=== PATIENT | male | born 1985 | race Caucasian/White ===

== ENCOUNTER 2021-09-17 11:33 | Emergency (ER) | payer SELFPAY ==
--- NOTE | 2021-09-17 12:37 | RAD REPORT ---
EXAM DESCRIPTION: US - Extrem Venous W Compress Horace - 09/17/2021 12:31 pm CLINICAL HISTORY: leg cramping Bilateral leg edema and swelling. COMPARISON: No comparisons TECHNIQUE: Real-time sonographic interrogation of the left and right lower extremity deep venous sys tems was performed. FINDINGS: Normal compressibility, flow augmentation, phasic flow and spontaneous flow is identified in both the left and right lower extremity deep venous systems. IMPRESSION: No sonographic evidence of left or right lower extremity deep venous thrombosis.
--- NOTE | 2021-09-17 12:42 | ER ---
Nurse's Notes [facility] Name: Tono Johnson Age: 36 yrs Sex: Male : 1985 Arrival Date: 09/17/2021 Time: 11:36 Bed 11 Private MD: Diagnosis: Encounter for examination and observation for unspecified reason Presentation: 09/17 12:00 Chief complaint: Patient states: [place]. Reports ph that he has a hx of factor 5 and pulmonary embolisms, has been taking Xarelto but ran out about 2 weeks ago and has not found a new PCP. States, " I thought I had another refill left but I didn't." Denies chest pain or SOB, reports leg cramping. Coronavirus screen: Vaccine status: Patient reports being unvaccinated. Ebola Screen: No symptoms or risks identified at this time. Initial Sepsis Screen: Does the patient meet any 2 criteria? No. Patient's initial sepsis screen is negative. Does the patient have a suspected source of infection? No. Patient's initial sepsis screen is negative. Risk Assessment: Do you want to hurt yourself or someone else? Patient reports no desire to harm self or others. Onset of symptoms was September 17, 2021. 12:00 Method Of Arrival: Ambulatory ph 12:00 Acuity: QUYEN 3 ph Triage Assessment: 12:04 General: Appears in no apparent distress. comfortable, Behavior is calm, cooperative, ph appropriate for age. Pain: Denies pain. Neuro: Level of Consciousness is awake, alert, obeys commands, Oriented to person, place, time, situation. Cardiovascular: Denies chest pain, shortness of breath. Respiratory: Airway is patent Respiratory effort is even, unlabored. Musculoskeletal: Circulation, motion, and sensation intact. Range of motion: intact in all extremities. Historical: - Allergies: 12:03 No Known Allergies; ph - Home Meds: 12:03 Xarelto oral [Active]; ph - PMHx: 12:03 pulmonary embolism; ph - PSHx: 12:03 Cholecystectomy; ph - Immunization history:: Adult Immunizations unknown. - Social history:: Smoking status: Patient reports the use of cigarette tobacco products, smokes .25 packs per day. Screenin:00 Abuse screen: Denies threats or abuse. Denies injuries from another. Nutritional iw screening: No deficits noted. Tuberculosis screening: No symptoms or risk factors identified. Fall Risk None identified. Vital Signs: 12:00 BP 124 / 92; Pulse 97; Resp 18; Temp 98.9; Pulse Ox 98% on R/A; Weight 77.11 kg; Height ph 6 ft. 1 in. (185.42 cm); 12:00 Body Mass Index 22.43 (77.11 kg, 185.42 cm) ph ED Course: 11:36 Patient arrived in ED. mr 11:36 Jeffrey Trimble PA is PHCP. cp 11:36 Christopher Haynes MD is Attending Physician. cp 12:03 Triage completed. ph 12:04 Arm band placed on Patient placed in an exam room. ph 12:09 Lenka Bob, RN is Primary Nurse. iw 12:32 US Extremity Venous W Compression Horace In Process Unspecified. EDMS 13:00 Patient has correct armband on for positive identification. iw 13:00 No provider procedures requiring assistance completed. Patient did not have IV access iw during this emergency room visit. Administered Medications: No medications were administered Outcome: 12:41 Discharge ordered by MD. cp 13:01 Discharged to home ambulatory. iw 13:01 Condition: good 13:01 Discharge instructions given to patient, Instructed on discharge instructions, follow up and referral plans. medication usage, Demonstrated understanding of instructions, follow-up care, medications, Prescriptions given X 1. 13:02 Patient left the ED. mh5 Signatures: Dispatcher [employer] Letty Diaz Lenka Bob RN RN Joselin Sandoval RN RN Jeffrey Trimble PA PA cp Martinez, Maria 5
--- NOTE | 2021-09-17 12:42 | EDPHYS ---
Physician Documentation [facility] Name: Tono Johnson Age: 36 yrs Sex: Male : 1985 Arrival Date: 09/17/2021 Time: 11:36 Bed 11 Private MD: ED Physician Christopher Haynes HPI: 09/17 12:10 This 36 yrs old Male presents to ER via Ambulatory with complaints of Medication Refill.cp 12:10 The patient presents to the emergency department requesting refill(s) for: Xarelto. 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 Patient reports leg cramping. Denies chest pain, denies shortness of breath. Historical: - Allergies: 12:03 No Known Allergies; ph - Home Meds: 12:03 Xarelto oral [Active]; ph - PMHx: 12:03 pulmonary embolism; ph - PSHx: 12:03 Cholecystectomy; ph - Immunization history:: Adult Immunizations unknown. - Social history:: Smoking status: Patient reports the use of cigarette tobacco products, smokes .25 packs per day. ROS: 12:15 Constitutional: Negative for body aches, chills, fever, poor PO intake. cp 12:15 Eyes: Negative for injury, pain, redness, and discharge. cp 12:15 ENT: Negative for ear pain, sore throat, difficulty swallowing, difficulty handling secretions. 12:15 Cardiovascular: Negative for chest pain, edema, palpitations. 12:15 Respiratory: Negative for cough, shortness of breath, wheezing. 12:15 Abdomen/GI: Negative for abdominal pain, nausea, vomiting, and diarrhea. 12:15 Back: Negative for pain at rest, pain with movement. 12:15 MS/extremity: Positive for of the right leg and left leg, cramping, Negative for pain, paresthesias. 12:15 Neuro: Negative for altered mental status, headache, numbness, weakness. 12:15 All other systems are negative. Exam: 12:20 Constitutional: The patient appears in no acute distress, alert, awake, cp non-diaphoretic, non-toxic, well developed, well nourished. 12:20 Head/Face: Normocephalic, atraumatic. cp 12:20 Eyes: Periorbital structures: appear normal, Conjunctiva: normal, no exudate, no injection, Sclera: no appreciated abnormality, Lids and lashes: appear normal, bilaterally. 12:20 ENT: External ear(s): are unremarkable, Nose: is normal, Posterior pharynx: Airway: no evidence of obstruction, patent. 12:20 Chest/axilla: Inspection: normal. 12:20 Cardiovascular: Rate: normal, Rhythm: regular, Edema: is not appreciated, JVD: is not appreciated. 12:20 Respiratory: the patient does not display signs of respiratory distress, Respirations: normal, no use of accessory muscles, no retractions, labored breathing, is not present, Breath sounds: are clear throughout, no decreased breath sounds, no stridor, no wheezing. 12:20 Abdomen/GI: Exam negative for discomfort, distension, guarding, Inspection: abdomen appears normal. 12:20 Back: pain, is absent, ROM is normal. 12:20 Musculoskeletal/extremity: DVT Exam: no swelling, no erythema, no increased warmth, tenderness, that is mild, of the right leg, of the left leg. Vital Signs: 12:00 BP 124 / 92; Pulse 97; Resp 18; Temp 98.9; Pulse Ox 98% on R/A; Weight 77.11 kg; Height ph 6 ft. 1 in. (185.42 cm); 12:00 Body Mass Index 22.43 (77.11 kg, 185.42 cm) ph MDM: 12:02 Patient medically screened. 12:40 Data reviewed: vital signs, nurses notes, radiologic studies, ultrasound. cp 12:40 Data interpreted: Pulse oximetry: on room air is 98 %. Interpretation: normal. cp Counseling: I had a detailed discussion with the patient and/or guardian regarding: the historical points, exam findings, and any diagnostic results supporting the discharge/admit diagnosis, the need for outpatient follow up, a family practitioner, to return to the emergency department if symptoms worsen or persist or if there are any questions or concerns that arise at home. 09/17 12:09 Order name: US Extremity Venous W Compression Horace; Complete Time: 12:43 cp 09/17 12:44 Interpretation: Report reviewed. cp Administered Medications: No medications were administered Disposition: 16:54 Co-signature as Attending Physician, Christopher Haynes MD. rn Disposition Summary: 09/17/21 12:41 Discharge Ordered Location: Home cp Problem: chronic cp Symptoms: are unchanged cp Condition: Stable cp Diagnosis - Encounter for examination and observation for unspecified reason cp Followup: cp - With: Private Physician - When: 2 - 3 days - Reason: Recheck today's complaints Discharge Instructions: - Discharge Summary Sheet cp Forms: - Medication Reconciliation Form cp - Thank You Letter cp - Antibiotic Education cp - Prescription Opioid Use cp Prescriptions: - Xarelto 20 mg Oral Tablet - take 1 tablet by ORAL route once daily; 30 tablet; Refills: 0, Product cp Selection Permitted Signatures: Dispatcher [employer] EDChristopher Rogers MD MD rn Hall, Patricia, RN RN ph Jeffrey Trimble, REBECCA PA cp
[2021-09-17 13:21] VITALS: BP 124/92; TEMP 98.9; O2SAT 98
== END 2021-09-17 13:02 | disposition home or self-care (01) ==
LOC: ER 11:33
DX: Z76.0 Encounter for issue of repeat prescription (principal); M79.605 Pain in left leg; M79.604 Pain in right leg; F17.210 Nicotine dependence, cigarettes, uncomplicated; Z79.01 Long term (current) use of anticoagulants; Z86.711 Personal history of pulmonary embolism
CPT/HCPCS: 93970; 99283

== ENCOUNTER 2024-08-03 16:52 | Emergency (ER) | payer OTHER, SELFPAY ==
[2024-08-03] MEDS ORDERED: HYDROMORPHONE HCL 1 MG/ML INJ ONE ×3 (17:31→19:42)
[2024-08-03 17:46] LABS: Absolute Basophils 0.1 K/uL (0-0.5); Absolute Lymphocytes (CBC) 2.1 K/uL (0.7-4.9); Absolute Monocytes 0.8 K/uL (0.1-1.3); Basophils % 0.6 % (0-1.3); Eosinophils % 0.4 % (0-4.4); Lymphocytes % 17.2 % (15.3-44.8); MCH 23.7 pg (27.0-35.0); MCHC 31.3 g/dL (32.0-36.0); MCV 75.9 fL (80-100); MPV 9.5 fL (7.6-11.3); Neutrophils % 74.8 % (41.7-73.7); Platelets 682 thou/uL (152-406); RBC Red Blood Cell Count 4.21 M/uL (4.33-5.43); Red Cell Distribution Width 24.7 % (12.1-15.2)
[2024-08-03 17:49] LABS: PT Prothrombin Time 14.7 SECONDS (9.4-12.5); PTT, Activated Partial Thromb 34.1 SECONDS (24.3-36.9); Protime INR 1.4
[2024-08-03] MEDS ORDERED: HYDROMORPHONE HCL 1 MG/ML INJ IV ONE (17:49)
[2024-08-03 17:52] LABS: Albumin 3.5 g/dL (3.4-5.0); Albumin/Globulin Ratio 0.7 (1.1-1.8); Anion Gap 9.7 mEq/L (5.0-15.0); Bilirubin Total 0.2 mg/dL (0.2-1.0); Globulin 5.2 g/dL (2.3-3.5); Potassium 4.7 mEq/L (3.5-5.1); Protein, Total 8.7 g/dL (6.4-8.2)
[2024-08-03 17:56] LABS: Anisocytosis 3+; Blood Morphology Comment NOTED (NOT SEEN); Platelet Estimate INCR; Platelets, Giant PRESENT; White Blood Cell Scan OK (OK)
--- NOTE | 2024-08-03 18:36 | EDPHYS ---
Physician Documentation [facility] Name: Tono Johnson Age: 39 yrs Sex: Male : 1985 Arrival Date: 08/03/2024 Time: 16:52 Bed 6 Private MD: ED Physician Reji Barr HPI: 08/03 18:32 This 39 yrs old Male presents to ER via Unassigned with complaints of Fall Injury, sp3 Laceration To Leg. 18:32 39-year-old male with recent BKA performed 1 week ago at [facility] presents [facility] the ED via EMS for mechanical traumatic fall resulting in complete wound dehiscence of the right lower extremity. Patient received 150 mcg of fentanyl prior to arrival. Bleeding is controlled. He is on Eliquis.. 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 - Infectious Disease History:: Denies. - Social history:: Smoking status: Patient denies any tobacco usage or history of. ROS: 18:32 Constitutional: Negative for fever, chills, and weight loss, Eyes: Negative for injury, sp3 pain, redness, and discharge, ENT: Negative for injury, pain, and discharge, Neck: Negative for injury, pain, and swelling, Cardiovascular: Negative for chest pain, palpitations, and edema, Respiratory: Negative for shortness of breath, cough, wheezing, and pleuritic chest pain, Abdomen/GI: Negative for abdominal pain, nausea, vomiting, diarrhea, and constipation, Back: Negative for injury and pain, Neuro: Negative for headache, weakness, numbness, tingling, and seizure, Psych: Negative for depression, anxiety, suicide ideation, homicidal ideation, and hallucinations, Allergy/Immunology: Negative for hives, rash, and allergies, Endocrine: Negative for neck swelling, polydipsia, polyuria, polyphagia, and marked weight changes, 18:32 All other systems are negative, Exam: 18:32 Constitutional: This is a well developed, well nourished patient who is awake, alert, sp3 and in no acute distress. Head/Face: Normocephalic, atraumatic. Chest/axilla: Normal chest wall appearance and motion. Nontender with no deformity. No lesions are appreciated. Cardiovascular: Regular rate and rhythm with a normal S1 and S2. No gallops, murmurs, or rubs. Normal PMI, no JVD. No pulse deficits. Respiratory: Lungs have equal breath sounds bilaterally, clear to auscultation and percussion. No rales, rhonchi or wheezes noted. No increased work of breathing, no retractions or nasal flaring. Abdomen/GI: Soft, non-tender, with normal bowel sounds. No distension or tympany. No guarding or rebound. No evidence of tenderness throughout. Back: No spinal tenderness. No costovertebral tenderness. Full range of motion. Neuro: Awake and alert, GCS 15, oriented to person, place, time, and situation. Cranial nerves II-XII grossly intact. Motor strength 5/5 in all extremities. Sensory grossly intact. Cerebellar exam normal. Normal gait. Psych: Awake, alert, with orientation to person, place and time. Behavior, mood, and affect are within normal limits. 18:32 Musculoskeletal/extremity: Complete wound dehiscence of the right lower extremity BKA with exposed underlying tissue.. Vital Signs: 16:53 BP 116 / 71; Pulse 73; Resp 17 S; Temp 98.3(O); Pulse Ox 98% on R/A; Weight 79.38 kg kc6 (R); Height 6 ft. 1 in. (R); Pain 9/10; 18:37 BP 133 / 90; Pulse 75; Resp 18 S; Pulse Ox 95% on R/A; kc6 16:53 Body Mass Index 23.09 (79.38 kg, 185.42 cm) kc6 16:53 Pain Scale: Adult kc6 Sun Coma Score: 16:53 Eye Response: spontaneous(4). Motor Response: obeys commands(6). Verbal Response: kc6 oriented(5). Total: 15. Trauma Score (Adult): 16:53 Eye Response: spontaneous(1); Verbal Response: oriented(1); Motor Response: obeys kc6 commands(2); Systolic BP: > 89 mm Hg(4); Respiratory Rate: 10 to 29 per min(4); Sun Score: 15; Trauma Score: 12 MDM: 18:27 Medical Screening Exam initiated sp3 18:33 Data reviewed: vital signs, nurses notes, old medical records, lab test result(s). ED sp3 course: 39-year-old male with wound dehiscence of the right BKA surgery. Will place wet-to-dry dressing, Ancef IV, and transfer patient to [facility] to the vascular service for repair. We discussed this with them and they have accepted the patient to the hospitalist service.. 08/03 18:26 Order name: Protime (+INR) EDMS 08/03 18:26 Order name: PTT, Activated Partial Thromb EDMS 08/03 18:26 Order name: Comprehensive Metabolic Panel EDMS 08/03 18:26 Order name: CBC with Automated Diff EDMS 08/03 18:26 Order name: CBC Smear Scan EDMS Administered Medications: 17:34 Drug: HYDROmorphone IVP 1 mg IVP once Route: IVP; Site: left antecubital; kc6 18:46 Follow up: Response: No adverse reaction; Pain is unchanged, physician notified; RASS: kc6 Restless (+1) 18:46 Drug: ceFAZolin IVPB 1 grams IVPB once Route: IVPB; Site: left antecubital; kc6 19:25 Follow up: IV Status: Completed infusion dd2 18:46 Drug: HYDROmorphone IVP 1 mg IVP once Route: IVP; Site: left antecubital; kc6 19:10 Follow up: Response: No adverse reaction dd2 19:44 Drug: HYDROmorphone IVP 1 mg IVP once Route: IVP; Site: left antecubital; dd2 19:46 Follow up: Response: Medication Administered at Departure dd2 Disposition Summary: 08/03/24 18:35 Transfer Ordered Notes: Transfer Location: [facility] sp3 Reason: Higher level of care sp3 Condition: Stable sp3 Problem: new sp3 Symptoms: have worsened sp3 Accepting Physician: [facility] service and vascular consu(08/03/24 19:46) dd2 Diagnosis - Right BKA wound dehiscence sp3 Forms: - Medication Reconciliation Form sp3 - SBAR form sp3 Signatures: Dispatcher [employer] EDReji Connell MD MD sp3 Bev Warren RN RN kc6 CATHI NUÑEZ RN RN dd2 Corrections: (The following items were deleted from the chart) 18: 18:26 CBC with Manual Differential ordered. EDMS EDMS 19:46 18:35 [facility] service and vascular consu sp3 dd2
--- NOTE | 2024-08-03 18:36 | ER ---
Nurse's Notes [facility] Name: Tono Johnson Age: 39 yrs Sex: Male : 1985 Arrival Date: 08/03/2024 Time: 16:52 Bed 6 Private MD: Diagnosis: Right BKA wound dehiscence Presentation: 08/03 16:53 Chief complaint: EMS states: they were toned out for a while ambulating with his kc6 crutches. pt denies LOC, takes Eliquis daily. pt reports being s/p RBKA x1 week and was d/c from [facility] this AM. upon EMS arrival the wound appears to be dehisced with a gauze and Coban dressing in place that saturated with bright red blood. Dr. Barr at bedside. 16:53 Care prior to arrival: Bleeding of injury uncontrolled. Injury dressed. Medication(s) kc6 given: Fentanyl 150 mcg IV IV initiated. 20 GA, in the left antecubital area, Glucose check: 160. Mechanism of Injury: Fall from standing position. Trauma event details: Injury occurred in the [facility], Injury occurred: at home. Injury occurred: August 03, 2024. 16:53 Acuity: QUYEN 2 kc6 16:53 Method Of Arrival: EMS: [facility] 6 16:53 Coronavirus screen: At this time, the client does not indicate any symptoms associated kc6 with coronavirus-19. Ebola Screen: No symptoms or risks identified at this time. Initial Sepsis Screen: Does the patient meet any 2 criteria? No. Patient's initial sepsis screen is negative. Does the patient have a suspected source of infection? No. Patient's initial sepsis screen is negative. Risk Assessment: Do you want to hurt yourself or someone else? Patient reports no desire to harm self or others. Onset of symptoms was August 03, 2024. Trauma Activation: Not Applicable Physician: ED Physician; Name: ; Notified At: ; Arrived At: Physician: General Surgeon; Name: ; Notified At: ; Arrived At: Physician: Radiology; Name: ; Notified At: ; Arrived At: Physician: Respiratory; Name: ; Notified At: ; Arrived At: Physician: Lab; Name: ; Notified At: ; Arrived At: Historical: - Allergies: 16:53 No Known Allergies; kc6 - PMHx: 16:53 Pulmonary Embolism; kc6 - PSHx: 16:53 Cholecystectomy; Splenectomy; right BKA; kc6 - Immunization history: Last tetanus immunization: unknown. - Infectious Disease History:: Denies. - Social history:: Smoking status: Patient denies any tobacco usage or history of. Screenin:53 Abuse screen: Denies threats or abuse. Denies injuries from another. Tuberculosis [facility] screening: No symptoms or risk factors identified. 16:53 [facility] ED Fall Risk Assessment (Adult) History of falling in the last 3 months, [facility] including since admission Yes- single mechanical fall (1 pt) Confusion or Disorientation No (0 pts) Intoxicated or Sedated No (0 pts) Impaired Gait Yes (1 pt) Mobility Assist Device Used Yes (1 pt) Altered Elimination No (0 pt) Score/Fall Risk Level 3 or more points = High Risk Oriented to surroundings, Maintained a safe environment, Educated pt \T\ family on fall prevention, incl call for assistance when getting out of bed. Nutritional screening: No deficits noted. Primary Survey: 16:53 Uncontrolled hemorrhage is observed, assessment has been re-ordered to <C> ABC. A: The kc client is awake and alert. The airway is patent. Breathing/Chest: Spontaneous respiratory effort, equal unlabored respirations, breath sounds clear bilaterally, regular pattern, symmetrical chest rise and fall. Circulation: Hemorrhage: External hemorrhage noted. to the RLE. Disability Pupils are equal, round, reactive to light and accommodation. Client is alert. Exposure/Environment: All clothing and personal items were removed. Forensic evidence collection is not deemed to be indicated at this time. Items placed in patient belonging bag. There is evidence of uncontrolled external hemorrhage. Provider notified immediately. Methods to control bleeding applied. Obvious injury(ies) are noted at this time: dehisced wound to the RLE covered in a gauze dressing and Coban. dressing appears to be saturate with bright red blood, margie visible. A warming method has been applied: A warm blanket has been provided to the patient. 18:50 Reassessment Alertness and Airway: Awake and alert. The airway is patent. Breathing: [facility] Spontaneous respiratory effort, equal unlabored respirations, breath sounds clear bilaterally, regular pattern with symmetrical chest rise and fall. Circulation: No external hemorrhage noted. Regular and strong central pulse, skin warm/dry/normal color. Disability: Pupils Pupils are equal, round, reactive to light and accomodation. Alert. Assessment: 16:53 General: Appears in no apparent distress. uncomfortable, well groomed, well developed, kc6 Behavior is cooperative, crying, restless. Pain: Complains of pain in right leg Pain does not radiate. Pain currently is 9 out of 10 on a pain scale. Quality of pain is described as sharp, shooting, stabbing, Pain began suddenly, Is continuous, Alleviated by medications, Aggravated by increased activity, repositioning, Noted to be crying, grimacing, guarding, moaning, resistant to movement, restless, Also complains of no other associated symptoms. Neuro: Level of Consciousness is awake, alert, obeys commands, Oriented to person, place, time, situation, Appropriate for age. Cardiovascular: Capillary refill < 3 seconds. Respiratory: Airway is patent Trachea midline Respiratory effort is even, unlabored, Respiratory pattern is regular, symmetrical. GI: No signs and/or symptoms were reported involving the gastrointestinal system. : No signs and/or symptoms were reported regarding the genitourinary system. EENT: No signs and/or symptoms were reported regarding the EENT system. Derm: Skin is healthy with good turgor, Skin is pink, warm \T\ dry. Wound noted right leg Wound is covered in a saturated gauze and Coban dressing. upon removing the dressing the wound appears to be dehisced with margie along the outside edges. Musculoskeletal: Amputation of right leg. 17:53 Reassessment: Patient appears in no apparent distress at this time. No changes from kc6 previously documented assessment. Patient and/or family updated on plan of care and expected duration. Pain level reassessed. Patient is alert, oriented x 3, equal unlabored respirations, skin warm/dry/pink. Patient states symptoms have not improved. 18:50 Reassessment: Patient appears in no apparent distress at this time. No changes from kc6 previously documented assessment. Patient and/or family updated on plan of care and expected duration. Pain level reassessed. Patient is alert, oriented x 3, equal unlabored respirations, skin warm/dry/pink. Patient states symptoms have not improved. 18:51 Reassessment: ATTEMPTED TO CALL REPORT TO [facility]. NO ANSWER AT THIS TIME. kc6 19:04 Reassessment: NURSE TO NURSE REPORT GIVEN TO LENO CLEMONS AT [facility]. kc6 Vital Signs: 16:53 BP 116 / 71; Pulse 73; Resp 17 S; Temp 98.3(O); Pulse Ox 98% on R/A; Weight 79.38 kg kc6 (R); Height 6 ft. 1 in. (R); Pain 9/10; 18:37 BP 133 / 90; Pulse 75; Resp 18 S; Pulse Ox 95% on R/A; kc6 16:53 Body Mass Index 23.09 (79.38 kg, 185.42 cm) kc6 16:53 Pain Scale: Adult kc6 [place] Coma Score: 16:53 Eye Response: spontaneous(4). Motor Response: obeys commands(6). Verbal Response: kc6 oriented(5). Total: 15. Trauma Score (Adult): 16:53 Eye Response: spontaneous(1); Verbal Response: oriented(1); Motor Response: obeys kc6 commands(2); Systolic BP: > 89 mm Hg(4); Respiratory Rate: 10 to 29 per min(4); [place] Score: 15; Trauma Score: 12 ED Course: 16:53 Patient has correct armband on for positive identification. Bed in low position. Call kc6 light in reach. Side rails up X2. 16:53 Arm band placed on. kc6 16:53 Pulse ox on. NIBP on. Door closed. Noise minimized. Lights dimmed. Warm blanket given. kc6 Pillow given. Verbal reassurance given. 16:53 Patient maintains SpO2 saturation greater than 95% on room air. kc6 16:53 Maintain EMS IV. Dressing intact. Good blood return noted. Site clean \T\ dry. Gauge \T\ travon 6 site: 20G LAC. Flushed with 10 mL NS. 16:53 Thermoregulation: warm blanket given to patient. kc6 17:34 Ramos wrap to right leg. Wound care: to RBKA located on right leg was soaked in normal kc6 saline solution, dressed with 4X4s, Kerlix, Patient tolerated poorly. 18:26 Patient arrived in ED. kb3 18:27 Reji Barr MD is Attending Physician. sp3 18:29 Bev Warren, RN is Primary Nurse. kc6 18:32 Triage completed. kc6 19:00 Report given to Yisel Oropeza RN. kc6 19:44 No provider procedures requiring assistance completed. Patient transferred, IV remains dd2 in place. 19:45 Provided Education on: TRANSFER EDUCATION. dd2 Administered Medications: 17:34 Drug: HYDROmorphone IVP 1 mg IVP once Route: IVP; Site: left antecubital; kc6 18:46 Follow up: Response: No adverse reaction; Pain is unchanged, physician notified; RASS: kc6 Restless (+1) 18:46 Drug: ceFAZolin IVPB 1 grams IVPB once Route: IVPB; Site: left antecubital; kc6 19:25 Follow up: IV Status: Completed infusion dd2 18:46 Drug: HYDROmorphone IVP 1 mg IVP once Route: IVP; Site: left antecubital; kc6 19:10 Follow up: Response: No adverse reaction dd2 19:44 Drug: HYDROmorphone IVP 1 mg IVP once Route: IVP; Site: left antecubital; dd2 19:46 Follow up: Response: Medication Administered at Departure dd2 Medication: 19:45 VIS not applicable for this client. dd2 Outcome: 18:35 ER care complete, transfer ordered by . sp3 19:44 Transferred by ground EMS to [facility], Transfer form completed. dd2 19:44 Condition: stable 19:44 Instructed on the need for transfer, Demonstrated understanding of instructions, 19:46 Patient left the ED. dd2 Signatures: Reji Barr MD MD sp3 Bev Warren, LENO RN kc6 Micki Cox RN RN kb3 YISEL OROPEZA RN RN dd2
[2024-08-03] MEDS ORDERED: NA CHLORIDE 0.9% 100 ML ONE (18:40)
[2024-08-03] MEDS ORDERED: CEFAZOLIN SODIUM 1 GM/VIAL ONE (18:40)
[2024-08-03 22:36] VITALS: TEMP 98.3
[2024-08-03 22:37] VITALS: BP 133/90; O2SAT 95
== END 2024-08-03 19:46 | disposition short-term general hospital (02) ==
LOC: ER 16:52
DX: T87.81 Dehiscence of amputation stump (principal); Z89.511 Acquired absence of right leg below knee; Z79.01 Long term (current) use of anticoagulants
CPT/HCPCS: 85025; 36415; 85610; 85730; 80053; J1171 ×3; J0690

== ENCOUNTER 2024-09-17 13:58 | Emergency (ER) | payer OTHER ==
--- NOTE | 2024-09-17 15:03 | RAD REPORT ---
EXAMINATION: Abdomen Pelvis Wo Contrast CLINICAL INDICATION: Male, 39 years old.FLANK PAIN TECHNIQUE: CT abdomen and pelvis was performed, without IV contrast, as per department protocol. Axia l, sagittal and coronal reconstructions were obtained. One or more of the following dose reduction techniques were used: Automated exposure control, adjustment of the mA and/or kV according to the pat ient size, and/or iterative reconstruction. Unless otherwise specified, incidental findings do not require dedicated imaging follow-up. [id number]. IV CONTRAST: Not administered. COMPARISON: None FINDINGS: The lack of intravenous contrast limits the sensitivity of this exam for evaluation of solid visceral organs, vascular structures, and retroperitoneum. LOWER CHEST: No acute process identified.No significant pericardial effusion. UPPER GI: No significant abnormality. LIVER: No significant focal abnormality. GALLBLADDER/BILE DUCTS: Cholecystectomy. Mild extra-hepatic biliary ductal dilatation is likely relat ed to the post-cholecystectomy state. Consider correlating with LFT's.? PANCREAS: No mass, ductal dilation, or deshawn-pancreatic fluid. SPLEEN: Splenectomy ADRENALS: No adrenal masses. KIDNEYS AND URETERS: No hydronephrosis.Limited evaluation for renal lesions in the absence of IV cont rast.Several punctate left renal calculi.No ureteral calculi identified. ABDOMINAL AORTA AND OTHER VESSELS: Aorta iliac stent graft. PERITONEUM: No abnormal free fluid. No free air. LYMPH NODES: No pathologic lymphadenopathy. ABDOMINAL WALL: Unremarkable SMALL BOWEL/COLON: Small bowel has normal course and caliber. No colonic wall thickening or pericolon ic inflammatory changes.Partial bowel resection. Nonvisualized appendix. URINARY BLADDER: Underdistended but grossly unremarkable. REPRODUCTIVE ORGANS: No pathologic process. MUSCULOSKELETAL: No acute or suspicious osseous abnormality. ADDITIONAL FINDINGS: None. IMPRESSION: No acute findings within the abdomen or pelvis. Nonobstructive left nephrolithiasis.
[2024-09-17] MEDS ORDERED: NA CHLORIDE 0.9% 1,000 ML ONE (15:04)
[2024-09-17 15:20] LABS: Absolute Lymphocytes (CBC) 2.4 K/uL (0.7-4.9); Absolute Monocytes 0.6 K/uL (0.1-1.3); Absolute Neutrophil 3.6 K/uL (1.8-8.0); Basophils % 0.6 % (0-1.3); Eosinophils % 0.4 % (0-4.4); Hematocrit 36.5 % (39.6-49.0); Hemoglobin 12.4 g/dL (13.6-17.9); Lymphocytes % 35.5 % (15.3-44.8); MCH 27.1 pg (27.0-35.0); MCHC 33.8 g/dL (32.0-36.0); MCV 80.3 fL (80-100); MPV 8.3 fL (7.6-11.3); Neutrophils % 54.5 % (41.7-73.7); Nucleated Red Blood Cells % 0.1 % (0-0); Platelets 442 thou/uL (152-406); RBC Red Blood Cell Count 4.55 M/uL (4.33-5.43); Red Cell Distribution Width 22.7 % (12.1-15.2)
[2024-09-17 15:27] LABS: White Blood Cell Scan OK (OK)
[2024-09-17 15:28] LABS: Anisocytosis 2+; Blood Morphology Comment NOTED (NOT SEEN); Platelet Estimate INCR; Platelets, Giant PRESENT
[2024-09-17 15:58] LABS: Albumin 3.6 g/dL (3.4-5.0); Albumin/Globulin Ratio 0.9 (1.1-1.8); Anion Gap 7.7 mEq/L (5.0-15.0); Bilirubin Total 0.4 mg/dL (0.2-1.0); Globulin 3.9 g/dL (2.3-3.5); Potassium 3.7 mEq/L (3.5-5.1); Protein, Total 7.5 g/dL (6.4-8.2)
[2024-09-17 16:06] LABS: PT Prothrombin Time 14.7 SECONDS (10-13.0); PTT, Activated Partial Thromb 31.2 SECONDS (27.2-37.4); Protime INR 1.31
[2024-09-17 16:25] LABS: Specific Gravity 1.009 (1.005-1.030); Urine Bilirubin NEGATIVE (Negative); Urine Blood Negative (Negative); Urine Clarity Clear (Clear); Urine Color Colorless (Yellow); Urine Glucose NEGATIVE (Negative); Urine Ketones NEGATIVE (Negative); Urine Microscopic Reflex YN NO UMIC; Urine Nitrite NEGATIVE (Negative); Urine Protein NEGATIVE (Negative); Urine Urobilinogen Normal (Normal)
--- NOTE | 2024-09-17 16:30 | ER ---
Nurse's Notes [facility] Name: Tono Johnson Age: 39 yrs Sex: Male : 1985 Arrival Date: 09/17/2024 Time: 13:58 Bed 18 Private MD: Diagnosis: Back pain Presentation: 09/17 14:02 Chief complaint: Patient states: he has a factor 5 blood clotting disorder, and is ap3 having low back pain. patient is worried he might have a blood clot, as he recently had a right BKA due to clotting issues. patient states "I am certain i have a blood clot in my toe. I just don't feel right.". Coronavirus screen: At this time, the client does not indicate any symptoms associated with coronavirus-19. Ebola Screen: No symptoms or risks identified at this time. Initial Sepsis Screen: Does the patient meet any 2 criteria? HR > 90 bpm. Does the patient have a suspected source of infection? No. Patient's initial sepsis screen is negative. Risk Assessment: Do you want to hurt yourself or someone else? Patient reports no desire to harm self or others. Onset of symptoms was September 10, 2024. 14:02 Method Of Arrival: Ambulatory ap3 14:02 Acuity: QUYEN 3 ap3 Triage Assessment: 14:06 General: Appears in no apparent distress. Behavior is calm, cooperative, appropriate ap3 for age. Pain: Complains of pain in low back area, left foot. Neuro: Level of Consciousness is awake, alert, obeys commands, Oriented to person, place, time, situation. Cardiovascular: Patient's skin is warm and dry. Respiratory: Airway is patent Respiratory effort is even, unlabored, Respiratory pattern is regular, symmetrical. Musculoskeletal: right BKA, patient ambulating with crutches. Historical: - Allergies: 14:05 No Known Allergies; ap3 - PMHx: 14:05 Pulmonary Embolism; factor 5 blood cloting disorder; ap3 - PSHx: 14:05 Cholecystectomy; RIGHT BKA; Splenectomy; ap3 - Immunization history:: Client reports having NOT received the Covid vaccine. Flu vaccine is up to date. - Infectious Disease History:: Denies. - Social history:: Smoking status: Patient denies any tobacco usage or history of. Screenin:07 Abuse screen: Denies threats or abuse. Nutritional screening: No deficits noted. ap3 Tuberculosis screening: No symptoms or risk factors identified. 14:30 [facility] ED Fall Risk Assessment (Adult) History of falling in the last 3 months, kj2 including since admission No falls in past 3 months (0 pts) Confusion or Disorientation No (0 pts) Intoxicated or Sedated No (0 pts) Impaired Gait Yes (1 pt) Mobility Assist Device Used Yes (1 pt) Altered Elimination Score/Fall Risk Level 0 - 2 = Low Risk Maintained a safe environment, Hourly rounding (assess needs \\T\\ fall precautionary measures) done. Assessment: 14:27 General: Appears in no apparent distress. Behavior is calm, cooperative. Pain: kj2 Complains of pain in back. 14:27 Pain: Complains of pain in back Pain currently is 7 out of 10 on a pain scale. Neuro: kj2 No deficits noted. Level of Consciousness is awake, alert, Oriented to person, place, time, situation. Cardiovascular: Patient's skin is warm and dry. Respiratory: Airway is patent Respiratory effort is even, unlabored. GI: No signs and/or symptoms were reported involving the gastrointestinal system. : No signs and/or symptoms were reported regarding the genitourinary system. 15:19 Reassessment: Patient appears in no apparent distress at this time. Patient and/or kj2 family updated on plan of care and expected duration. Pain level reassessed. Patient is alert, oriented x 3, equal unlabored respirations, skin warm/dry/pink. 16:10 Reassessment: Patient appears in no apparent distress at this time. Patient and/or kj2 family updated on plan of care and expected duration. Pain level reassessed. Patient is alert, oriented x 3, equal unlabored respirations, skin warm/dry/pink. 16:45 Reassessment: Patient appears in no apparent distress at this time. Patient and/or kj2 family updated on plan of care and expected duration. Pain level reassessed. Patient is alert, oriented x 3, equal unlabored respirations, skin warm/dry/pink. Vital Signs: 14:02 BP 147 / 90; Pulse 117; Resp 18; Temp 98.1; Pulse Ox 97% ; Weight 83.91 kg; Height 6 ap3 ft. 1 in. ; Pain 8/10; 15:19 BP 149 / 106; Pulse 97; Resp 20; Pulse Ox 97% on R/A; kj2 16:10 BP 120 / 69; Pulse 57; Resp 18; kj2 16:45 BP 121 / 70; Pulse 60; Resp 20; Temp 98.1; Pulse Ox 100% on R/A; kj2 14:02 Body Mass Index 24.41 (83.91 kg, 185.42 cm) ap3 14:02 Pain Scale: Adult ap3 ED Course: 13:58 Patient arrived in ED. mr 13:58 Reji Barr MD is Attending Physician. sp3 14:05 Triage completed. ap3 14:08 Arm band placed on left wrist. ap3 14:22 Harini Bob, RN is Primary Nurse. kj2 14:31 Patient has correct armband on for positive identification. Call light in reach. Adult kj2 w/ patient. Provided Education on: call light. 14:48 CT Abd/Pelvis - Without Contrast In Process Unspecified. EDMS 15:05 Inserted saline lock: 20 gauge in right forearm, using aseptic technique. Blood kj2 collected. Flushed with 10 mL NS. 16:47 No provider procedures requiring assistance completed. IV discontinued, intact, kj2 bleeding controlled, No redness/swelling at site. Pressure dressing applied. Administered Medications: 15:16 Drug: NS 0.9% IV 1000 ml IV at 1 bolus Per protocol; to be given as a bolus over 60 kj2 minutes Route: IV; Rate: 1 bolus; Site: right forearm; 16:48 Follow up: IV Status: Completed infusion; IV Intake: 1000ml kj2 Medication: 14:33 VIS not applicable for this client. kj2 Intake: 16:48 IV: 1000ml; Total: 1000ml. kj2 Outcome: 16:30 Discharge ordered by . sp3 16:47 Discharged to home ambulatory, kj2 16:47 Condition: stable 16:47 Discharge instructions given to patient, Instructed on discharge instructions, follow up and referral plans. Demonstrated understanding of instructions, follow-up care, medications, Prescriptions given X 1, 17:06 Patient left the ED. kj2 Signatures: Dispatcher [employer] EDMN JoseLetty, Reg Reg mr IsaurobeboElba, RN RN ap3 Reji Barr MD MD sp3 Harini Bob, LENO RN kj2
--- NOTE | 2024-09-17 16:31 | EDPHYS ---
Physician Documentation [facility] Name[facility] T[facility] Age: 39 yrs Sex: Male : 1985 Arrival Date: 09/17/2024 Time: 13:58 Bed 18 Private MD: ED Physician Reji Barr HPI: 09/17 14:41 This 39 yrs old Male presents to ER via Ambulatory with complaints of Back Pain. sp3 14:41 39-year-old male with history of pulmonary embolism, factor V clotting disorder, on sp3 Eliquis presents to the ED with low back pain. 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 He had wound dehiscence and complication from that recently for which she was transferred back up to [facility]. 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 He presents with low back pain radiating around anteriorly. He denies any symptoms, fall or trauma, bleeding, prior kidney stone, chest pain, shortness of breath, upper back pain, or any other signs or symptoms on ROS at this time.. Historical: - Allergies: 14:05 No Known Allergies; ap3 - PMHx: 14:05 Pulmonary Embolism; factor 5 blood cloting disorder; ap3 - PSHx: 14:05 Cholecystectomy; RIGHT BKA; Splenectomy; ap3 - Immunization history:: Client reports having NOT received the Covid vaccine. Flu vaccine is up to date. - Infectious Disease History:: Denies. - Social history:: Smoking status: Patient denies any tobacco usage or history of. ROS: 14:43 Constitutional: Negative for fever, chills, and weight loss, Eyes: Negative for injury, sp3 pain, redness, and discharge, Cardiovascular: Negative for chest pain, palpitations, and edema, Respiratory: Negative for shortness of breath, cough, wheezing, and pleuritic chest pain, Abdomen/GI: Negative for abdominal pain, nausea, vomiting, diarrhea, and constipation, Back: Negative for injury and pain, Skin: Negative for injury, rash, and discoloration, Neuro: Negative for headache, weakness, numbness, tingling, and seizure, Psych: Negative for depression, anxiety, suicide ideation, homicidal ideation, and hallucinations, Allergy/Immunology: Negative for hives, rash, and allergies, 14:43 All other systems are negative, Exam: 14:45 Constitutional: This is a well developed, well nourished patient who is awake, alert, sp3 and in no acute distress. Head/Face: Normocephalic, atraumatic. Eyes: Pupils equal round and reactive to light, extra-ocular motions intact. Lids and lashes normal. Conjunctiva and sclera are non-icteric and not injected. Cornea within normal limits. Periorbital areas with no swelling, redness, or edema. Neck: Trachea midline, no thyromegaly or masses palpated, and no cervical lymphadenopathy. Supple, full range of motion without nuchal rigidity, or vertebral point tenderness. No Meningismus. Chest/axilla: Normal chest wall appearance and motion. Nontender with no deformity. No lesions are appreciated. Respiratory: Lungs have equal breath sounds bilaterally, clear to auscultation and percussion. No rales, rhonchi or wheezes noted. No increased work of breathing, no retractions or nasal flaring. Abdomen/GI: Soft, non-tender, with normal bowel sounds. No distension or tympany. No guarding or rebound. No evidence of tenderness throughout. Back: No spinal tenderness. No costovertebral tenderness. Full range of motion. Skin: Warm, dry with normal turgor. Normal color with no rashes, no lesions, and no evidence of cellulitis. MS/ Extremity: Pulses equal, no cyanosis. Neurovascular intact. Full, normal range of motion. Neuro: Awake and alert, GCS 15, oriented to person, place, time, and situation. Cranial nerves II-XII grossly intact. Motor strength 5/5 in all extremities. Sensory grossly intact. Cerebellar exam normal. Normal gait. Psych: Awake, alert, with orientation to person, place and time. Behavior, mood, and affect are within normal limits. 14:45 Cardiovascular: Rate: tachycardic, 14:45 Musculoskeletal/extremity: Left lower extremity warm to the touch with normal capillary refill and normal pulses. No pain in the calf or swelling noted. Normal exam of the foot. Patient states he has lateral pain in his toes "along the edges" but normal exam. No lesions, splinter hemorrhages or any other abnormality noted. Capillary refill normal on all toes of the left foot.. Vital Signs: 14:02 BP 147 / 90; Pulse 117; Resp 18; Temp 98.1; Pulse Ox 97% ; Weight 83.91 kg; Height 6 ap3 ft. 1 in. ; Pain 8/10; 15:19 BP 149 / 106; Pulse 97; Resp 20; Pulse Ox 97% on R/A; kj2 16:10 BP 120 / 69; Pulse 57; Resp 18; kj2 16:45 BP 121 / 70; Pulse 60; Resp 20; Temp 98.1; Pulse Ox 100% on R/A; kj2 14:02 Body Mass Index 24.41 (83.91 kg, 185.42 cm) ap3 14:02 Pain Scale: Adult ap3 MDM: 14:10 Medical Screening Exam initiated sp3 14:46 Data reviewed: vital signs, nurses notes, old medical records, lab test result(s), sp3 radiologic studies. ED course: 39-year-old male with PMH above with low back pain. Differential diagnosis includes musculoskeletal pain, pathology including UTI/pyelonephritis, kidney stone, other intra-abdominal pathology, among others. I am not highly suspicious of DIC, arterial or venous thromboembolic disease, or any other critical process at this time. Patient is tachycardic at triage however on my exam he was 100 bpm heart rate. Will obtain CT scan of the abdomen pelvis noncontrast, UA and general labs as well as administer IV fluids to assess.. 16:27 ED course: Vital signs remain normal. CT scan of the abdomen pelvis negative. All labs sp3 normal including fibrinogen. I do not believe patient is in DIC or any other coagulation abnormality. Circulation peripheral is normal. Pulses are normal, capillary refill is normal. Will place patient on tramadol and have him follow-up with hematology at next available possibility.. 09/17 14:35 Order name: CBC with Diff; Complete Time: 16:13 sp3 09/17 14:35 Order name: CMP; Complete Time: 16:13 sp3 09/17 14:35 Order name: Lipase; Complete Time: 16:13 sp3 09/17 14:35 Order name: Urinalysis w/ reflexes; Complete Time: 16:26 sp3 09/17 14:35 Order name: PT-INR; Complete Time: 16:13 sp3 09/17 14:35 Order name: Ptt, Activated; Complete Time: 16:13 sp3 09/17 14:35 Order name: Fibrinogen; Complete Time: 16:13 sp3 09/17 15:28 Order name: CBC Smear Scan; Complete Time: 16:13 EDMS 09/17 14:35 Order name: CT Abd/Pelvis - Without Contrast; Complete Time: 15:06 sp3 09/17 14:35 Order name: IV Saline Lock; Complete Time: 15:08 sp3 09/17 14:35 Order name: Labs collected and sent; Complete Time: 15:08 sp3 Administered Medications: 15:16 Drug: NS 0.9% IV 1000 ml IV at 1 bolus Per protocol; to be given as a bolus over 60 kj2 minutes Route: IV; Rate: 1 bolus; Site: right forearm; 16:48 Follow up: IV Status: Completed infusion; IV Intake: 1000ml kj2 Disposition Summary: 09/17/24 16:30 Discharge Ordered Notes: Location: Home sp3 Condition: Stable sp3 Diagnosis - Back pain sp3 Followup: sp3 - With: Private Physician - When: Upon discharge from the Emergency Department - Reason: Continuance of care Discharge Instructions: - Discharge Summary Sheet sp3 - Acute Back Pain, Adult sp3 Forms: - Medication Reconciliation Form sp3 - Antibiotic Education sp3 - Prescription Opioid Use sp3 - Patient Portal Instructions sp3 - Leadership Thank You Letter sp3 Prescriptions: - Tramadol 50 mg Oral Tablet - take 1 tablet ORAL route every 8 hours as needed; 12 tablet; Refills: 0, sp3 Product Selection Permitted Signatures: Dispatcher [facility] EDElba Paniagua RN RN ap3 Reji Barr MD MD sp3 Harini Bbo RN RN kj2 Corrections: (The following items were deleted from the chart) 14:35 14:35 CBC+H.LAB.BRZ ordered. EDMS EDMS 14:35 14:35 COMPREHENSIVE METABOLIC PANEL+C.LAB.BRZ ordered. EDMS EDMS 14:35 14:35 LIPASE+C.LAB.BRZ ordered. EDMS EDMS 14:35 14:35 Urinalysis+U.LAB.BRZ ordered. EDMS EDMS 14:35 14:35 PROTIME (+INR)+COAG.LAB.BRZ ordered. EDMS EDMS 14:35 14:35 PTT, ACTIVATED+COAG.LAB.BRZ ordered. EDMS EDMS 14:35 14:35 FIBRINOGEN+COAG.LAB.BRZ ordered. EDMS EDMS 14:35 14:35 Abdomen Pelvis Wo Con+CT.RAD.BRZ ordered. EDMS EDMS
[2024-09-17 17:47] VITALS: TEMP 98.1
[2024-09-17 17:55] VITALS: BP 121/70; O2SAT 100
== END 2024-09-17 17:06 | disposition home or self-care (01) ==
LOC: ER 13:58
DX: M54.50 Low back pain, unspecified (principal); Z86.711 Personal history of pulmonary embolism
CPT/HCPCS: 96361; 85025; 36415; 85384; 85610; 85730; 81003; 83690; 80053; 74176; 96360; 99284; J7030

== ENCOUNTER 2024-10-03 09:22 | Emergency (ER) | payer OTHER ==
[2024-10-03] MEDS ORDERED: HYDROMORPHONE HCL 2 MG/ML inj ONE (09:36)
[2024-10-03 09:58] LABS: Absolute Lymphocytes (CBC) 1.1 K/uL (0.7-4.9); Absolute Monocytes 0.7 K/uL (0.1-1.3); Absolute Neutrophil 20.1 K/uL (1.8-8.0); Basophils % 0.1 % (0-1.3); Hematocrit 44.7 % (39.6-49.0); Hemoglobin 14.4 g/dL (13.6-17.9); Lymphocytes % 5.1 % (15.3-44.8); MCH 26.4 pg (27.0-35.0); MCHC 32.3 g/dL (32.0-36.0); MCV 81.8 fL (80-100); MPV 8.1 fL (7.6-11.3); Monocytes % 3.3 % (3.3-12.3); Neutrophils % 91.5 % (41.7-73.7); Platelets 340 thou/uL (152-406); RBC Red Blood Cell Count 5.46 M/uL (4.33-5.43); Red Cell Distribution Width 20.9 % (12.1-15.2)
--- NOTE | 2024-10-03 10:00 | EDPHYS ---
Physician Documentation [facility] Name: Tono Johnson Age: 39 yrs Sex: Male : 1985 Arrival Date: 10/03/2024 Time: 09:22 Bed 14 Private MD: ED Physician Jeffrey Rojas HPI: 10/03 09:38 This 39 yrs old Male presents to ER via Unassigned with complaints of left leg pain. sb4 09:38 The patient presents with pain, that is acute. The complaints affect the left leg. sb4 sudden onset left leg pain and numbness this morning. h/o factor V, on eliquis daily which he reports compliance with. Historical: - Allergies: 09:40 No Known Allergies; bp - PMHx: 09:40 Pulmonary Embolism; factor 5 blood cloting disorder; bp - PSHx: 09:40 Splenectomy; RIGHT BKA; Cholecystectomy; bp - Immunization history:: Adult Immunizations up to date. - Infectious Disease History:: Denies. - Social history:: Smoking status: unknown. ROS: 09:38 Constitutional: Negative for fever, chills, and weight loss, sb4 09:38 MS/extremity: Positive for pain, of the left leg, 09:38 All other systems are negative, Exam: 09:38 Head/Face: Normocephalic, atraumatic. Eyes: Extra-ocular motions intact. Periorbital sb4 areas with no swelling, redness, or edema. ENT: Mucous membranes moist. Cardiovascular: Regular rate and rhythm with a normal S1 and S2. Respiratory: No increased work of breathing, no retractions or nasal flaring. 09:38 Constitutional: The patient appears alert, awake, in obvious distress, in obvious pain, restless, uncomfortable, 09:38 Musculoskeletal/extremity: Pulses: noted to be 1+ in the left dorsalis pedis artery, Perfusion: the extremity is cool, pale, Vital Signs: 09:38 BP 168 / 104; Pulse 95; Resp 16; Temp 98; Pulse Ox 97% ; Weight 84 kg; bp 10:48 BP 157 / 102; Pulse 101; Resp 24; Pulse Ox 96% ; bp MDM: 09:34 Medical Screening Exam initiated sb4 10:00 Data reviewed: vital signs, nurses notes, EMS record, lab test result(s), radiologic sb4 studies, I have discussed the patient's presentation/case with the attending Emergency Department Physician;. Counseling: I had a detailed discussion with the patient and/or guardian regarding the historical points, exam findings, and any diagnostic results supporting the discharge/admit diagnosis, the need to transfer to another facility, for higher level of care, [facility] does not immediately have the required specialist. 10/03 09:37 Order name: Basic Metabolic Panel; Complete Time: 10:13 sb4 10/03 09:37 Order name: CBC with Diff; Complete Time: 10:39 sb4 10/03 09:37 Order name: PT-INR; Complete Time: 10:04 sb4 10/03 09:57 Order name: Troponin High Sensitivity; Complete Time: 17:20 candace 10/03 09:57 Order name: BNP; Complete Time: 17:20 candace 10/03 10:01 Order name: CBC Smear Scan; Complete Time: 10:39 EDMS 10/03 09:35 Order name: Extremity Venous Uni Ltd US; Complete Time: 17:20 sb4 10/03 09:35 Order name: Lower Extremity Artery Uni Ltd US; Complete Time: 17:20 sb4 10/03 09:35 Order name: IV Start; Complete Time: 09:42 sb4 10/03 09:37 Order name: Labs collected and sent; Complete Time: 10:25 sb4 10/03 09:37 Order name: O2 Per Protocol; Complete Time: 09:42 sb4 10/03 09:37 Order name: O2 Sat Monitoring; Complete Time: 09:41 sb4 10/03 09:57 Order name: NPO; Complete Time: 10:[address] [facility] 10/03 09:58 Order name: Misc. Order: warm blanket; Complete Time: 10:[address] [facility] 10/03 10:01 Order name: IV Saline Lock - Large Bore; Complete Time: 10:[address] [facility] Administered Medications: 09:42 Drug: HYDROmorphone IVP 2 mg IVP once Route: IVP; Site: right forearm; bp 10:33 Follow up: Response: No adverse reaction bp 10:15 Drug: Nitroglycerin Transdermal Ointment 2 % 1 inches Transdermal once; onto left calf bp Route: Transdermal; Site: affected area; 10:15 Drug: Ketamine IVP 1 mg/kg IVP once Route: IVP; Site: right forearm; bp 10:25 Follow up: Response: No adverse reaction bp 10:15 Drug: NS 0.9% IV 1000 ml IV at 1000 ml once; to be given as a bolus over 60 minutes bp Route: IV; Rate: 1000 ml; Site: right forearm; 10:33 Follow up: IV Status: Infusion continued upon transfer bp 10:16 Drug: Heparin ([place] Drip) 12 units/kg/[place] - ([place] [address] units, D5W IV 500 ml) IV at bp calculated rate Per protocol; Max initial rate 1000 units/hr {Co-Signature: hb (Sue Bahena RN).} Route: IV; Rate: calculated rate; Site: right forearm; 10:33 Follow up: IV Status: Infusion continued upon transfer bp 10:32 Drug: Heparin (NM-Bolus with thrombolytic) - HEParin IVP 60 units/kg IVP once; Max 4000 bp units {Co-Signature: hb (Sue Bahena RN).} Route: IVP; Site: right forearm; 10:33 Follow up: Response: No adverse reaction bp 10:49 Drug: Aspirin PO Chewable Tablet 81 mg PO once Route: PO; bp 10:50 Follow up: Response: No adverse reaction bp 10:49 Drug: Ketamine IVP 1 mg/kg IVP once Route: IVP; Site: right forearm; bp 10:50 Follow up: Response: No adverse reaction bp Disposition: 10:28 Co-signature as Attending Physician, Jeffrey Rojas MD I agree with the assessment and candace plan of care. Disposition Summary: 10/03/24 10:00 Transfer Ordered Notes: Transfer Location: [facility] sb4 Reason: Higher level of care sb4 Condition: Serious sb4 Problem: new sb4 Symptoms: are unchanged sb4 Accepting Physician: vascular(10/03/24 11:01) ll1 Diagnosis - Acute arterial occlusion, left leg - acute ischemic leg sb4 - Acute arterial occlusion, left lower extremity sb4 - Essential (primary) hypertension candace - Elevated white blood cell count candace - Hyperglycemia, unspecified candace Forms: - Medication Reconciliation Form sb4 - SBAR form sb4 Critical care time excluding procedures: 10:05 Critical care time: Bedside Care: 15 minutes, Consultation: 20 minutes. Total time: 35 sb4 minutes Signatures: Dispatcher [employer] EDMS Jeffrey Rojas MD MD cha Peltier, Brian, RN RN bp Blaire Walter RN RN ll1 Betsey Schofield PA-C PABlanca sb4 Sue Bahena RN Corrections: (The following items were deleted from the chart) 09:35 09:35 Extremity Venous Uni Ltd+US.RAD.BRZ ordered. EDMS EDMS 09:36 09:35 Lower Extremity Artery Uni Ltd+US.RAD.BRZ ordered. EDMS EDMS 09:37 09:37 BASIC METABOLIC PANEL+C.LAB.BRZ ordered. EDMS EDMS 09:37 09:37 CBC+H.LAB.BRZ ordered. EDMS EDMS 09:37 09:37 PROTIME (+INR)+COAG.LAB.BRZ ordered. EDMS EDMS 09:58 09:58 Troponin High Sensitivity+C.LAB.BRZ ordered. EDMS EDMS 09:58 09:58 PROBNP+C.LAB.BRZ ordered. EDMS EDMS 10:00 10:00 vascular sb4 sb4 10:00 10:00 vascular sb4 sb4 10:34 10:00 vascular sb4 candace 11:01 10:34 vascular candace ll1
--- NOTE | 2024-10-03 10:00 | ER ---
Nurse's Notes [facility] Name: Tono Johnson Age: 39 yrs Sex: Male : 1985 Arrival Date: 10/03/2024 Time: 09:22 Bed 14 Private MD: Diagnosis: Acute arterial occlusion, left lower extremity;Essential (primary) hypertension;Elevated white blood cell count;Hyperglycemia, unspecified Presentation: 10/03 09:38 Chief complaint: EMS states: LLE PAIN SINCE WAKING 3 HR AGO. Coronavirus screen: At bp this time, the client does not indicate any symptoms associated with coronavirus-19. Ebola Screen: No symptoms or risks identified at this time. Initial Sepsis Screen: Does the patient meet any 2 criteria? No. Patient's initial sepsis screen is negative. Does the patient have a suspected source of infection? No. Patient's initial sepsis screen is negative. Risk Assessment: Do you want to hurt yourself or someone else?. Onset of symptoms was October 03, 2024 at 07:00. 09:38 Method Of Arrival: EMS: [facility] bp 09:38 Acuity: QUYEN 3 bp 09:38 Care prior to arrival: Medication(s) given: Tylenol, 1000 mg, zofran 4 mg, FENTANYL 50 bp MCG IV initiated. 20 GA, in the right forearm. Triage Assessment: 09:40 General: Appears uncomfortable, Behavior is agitated, anxious, restless. Pain: bp Complains of pain in left leg. EENT: No deficits noted. Neuro: No deficits noted. Cardiovascular: Rhythm is sinus tachycardia. Respiratory: No deficits noted. GI: No signs and/or symptoms were reported involving the gastrointestinal system. : No signs and/or symptoms were reported regarding the genitourinary system. Derm: No deficits noted. Musculoskeletal: Reports pain in left leg. Historical: - Allergies: 09:40 No Known Allergies; bp - PMHx: :40 Pulmonary Embolism; factor 5 blood cloting disorder; bp - PSHx: :40 Splenectomy; RIGHT BKA; Cholecystectomy; bp - Immunization history:: Adult Immunizations up to date. - Infectious Disease History:: Denies. - Social history:: Smoking status: unknown. Screenin:40 [facility] ED Fall Risk Assessment (Adult) History of falling in the last 3 months, bp including since admission No falls in past 3 months (0 pts) Confusion or Disorientation No (0 pts) Intoxicated or Sedated No (0 pts) Impaired Gait No (0 pts) Mobility Assist Device Used Yes (1 pt) Altered Elimination No (0 pt) Score/Fall Risk Level 0 - 2 = Low Risk Oriented to surroundings. Abuse screen: Denies threats or abuse. Denies injuries from another. Nutritional screening: No deficits noted. Tuberculosis screening: No symptoms or risk factors identified. Assessment: 09:40 General: Appears distressed, uncomfortable, Behavior is agitated, anxious, restless. bp 10:48 Reassessment: REPORT TO ORACIO BURR AT [facility]. [facility] AT B/S. bp Vital Signs: 09:38 BP 168 / 104; Pulse 95; Resp 16; Temp 98; Pulse Ox 97% ; Weight 84 kg; bp 10:48 BP 157 / 102; Pulse 101; Resp 24; Pulse Ox 96% ; bp ED Course: 09:34 Patient arrived in ED. sb4 09:34 Betsey Schofield PA-C is PHCP. sb4 09:34 Jeffrey Rojas MD is Attending Physician. sb4 09:36 Arm band placed on Patient placed in an exam room, on a stretcher. ll1 09:38 Grover Zuniga, LENO is Primary Nurse. bp 09:39 Triage completed. bp 09:40 Patient has correct armband on for positive identification. bp 09:45 Initial lab(s) drawn, by me, sent to lab. Maintain EMS IV. Dressing intact. Good blood bp return noted. Site clean \T\ dry. Gauge \T\ site: 20 RFA. Flushed with 10 mL NS. 09:[address] [facility] talked to Poll[place]. 1000 Dr. Bob gilliland called [facility] for transfer. 10:[address] Patria Lacey accepted pt to [facility] 1025 admin approval Pollo gilliland bed 2155 report number [phone] [facility] talked to Salbador. 10:46 Extremity Venous Uni Ltd US In Process Unspecified. EDMS 10:46 Lower Extremity Artery Uni Ltd US In Process Unspecified. EDMS 10:49 Provided Education on: NA. bp 10:49 No provider procedures requiring assistance completed. Patient transferred, IV remains bp in place. Administered Medications: 09:42 Drug: HYDROmorphone IVP 2 mg IVP once Route: IVP; Site: right forearm; bp 10:33 Follow up: Response: No adverse reaction bp 10:15 Drug: Nitroglycerin Transdermal Ointment 2 % 1 inches Transdermal once; onto left calf bp Route: Transdermal; Site: affected area; 10:15 Drug: Ketamine IVP 1 mg/kg IVP once Route: IVP; Site: right forearm; bp 10:25 Follow up: Response: No adverse reaction bp 10:15 Drug: NS 0.9% IV 1000 ml IV at 1000 ml once; to be given as a bolus over 60 minutes bp Route: IV; Rate: 1000 ml; Site: right forearm; 10:33 Follow up: IV Status: Infusion continued upon transfer bp 10:16 Drug: Heparin ([place] Drip) 12 units/kg/[place] - ([place] [address] units, D5W IV 500 ml) IV at bp calculated rate Per protocol; Max initial rate 1000 units/hr {Co-Signature: hb (Sue Bahena RN).} Route: IV; Rate: calculated rate; Site: right forearm; 10:33 Follow up: IV Status: Infusion continued upon transfer bp 10:32 Drug: Heparin ([place]-Bolus with thrombolytic) - HEParin IVP 60 units/kg IVP once; Max 4000 bp units {Co-Signature: miguel (Sue Bahena RN).} Route: IVP; Site: right forearm; 10:33 Follow up: Response: No adverse reaction bp 10:49 Drug: Aspirin PO Chewable Tablet 81 mg PO once Route: PO; bp 10:50 Follow up: Response: No adverse reaction bp 10:49 Drug: Ketamine IVP 1 mg/kg IVP once Route: IVP; Site: right forearm; bp 10:50 Follow up: Response: No adverse reaction bp Medication: 09:40 VIS not applicable for this client. bp Outcome: 10:00 ER care complete, transfer ordered by sb4 10:49 Transferred by helicopter to [facility], Transfer form completed. bp 10:49 Condition: stable 10:49 Instructed on the need for transfer, 11:01 Patient left the ED. ll1 Signatures: Dispatcher [employer] EDMS Justyna Arellano Brian, RN RN bp Blaire Walter RN RN ll1 Betsey Schofield PA-C PA-C sb4 Sue Bahena RN hb Corrections: (The following items were deleted from the chart) 10:04 09:38 Pulse 95bpm; Resp 16bpm; Pulse Ox 97%; Temp 98F; bp bp 10:26 09:38 Pulse 95bpm; Resp 16bpm; Pulse Ox 97%; Temp 98F; 84 kg; bp bp
[2024-10-03 10:03] LABS: PT Prothrombin Time 12.6 SECONDS (10-13.0); Protime INR 1.11
[2024-10-03] MEDS ORDERED: KETAMINE HCL IN 0.9 % NACL 50 MG/5 ML SYRINGE IV ONE ×2 (10:06→10:45)
[2024-10-03] MEDS ORDERED: HEPARIN/D5W 25,000 UNIT/500 ML BAG IV ONE (10:07)
[2024-10-03] MEDS ORDERED: NITROGLYCERIN 1 GM PKT TD ONE (10:07)
[2024-10-03] MEDS ORDERED: NA CHLORIDE 0.9% 1,000 ML ONE (10:07)
[2024-10-03 10:10] LABS: Anion Gap 13.7 mEq/L (5.0-15.0); Potassium 3.7 mEq/L (3.5-5.1)
[2024-10-03] MEDS ORDERED: HEPARIN 5000 UNIT/ML 1 ML VIAL ONE (10:28)
[2024-10-03 10:36] LABS: Blood Morphology Comment NOTED (NOT SEEN); White Blood Cell Scan OK (OK)
[2024-10-03 10:37] LABS: Anisocytosis 2+; Platelet Estimate ADEQ
[2024-10-03] MEDS ORDERED: ASPIRIN 81 MG CHEWABLE TABLET ONE (10:46)
[2024-10-03 10:50] LABS: NT PRO-BNP 79 pg/mL (<125)
--- NOTE | 2024-10-03 11:07 | RAD REPORT ---
EXAM:Extremity Venous Uni Ltd HISTORY: Left leg pain TECHNIQUE: Sonographic evaluation left lower extremity performed.Grayscale, color and spectral analys is performed on all vessels COMPARISON: None. FINDINGS: Echogenic material consistent with acute thrombus is present within the left posterior tibial vein. T he vein is noncompressible. The left common femoral, superficial femoral, greater saphenous, popliteal veins are compressible and demonstrate augmentation. Doppler demonstrates good flow. IMPRESSION: Acute thrombus left posterior tibial vein.
--- NOTE | 2024-10-03 11:13 | RAD REPORT ---
EXAM:Lower Extremity Artery Uni Ltd HISTORY: Left eg pain TECHNIQUE: Sonographic evaluation left lower extremity arteries performed.Grayscale, color and spectr al analysis performed on all vessels COMPARISON: None. FINDINGS: Left common femoral, superficial femoral, popliteal, posterior tibial and dorsalis pedis arterial wav eforms are monophasic and diminished in amplitude. IMPRESSION: Abnormal waveforms of the left lower extremity arteries probably indicating significant aorto iliac d isease
[2024-10-03 11:37] LABS: Troponin High Sensitivity < 3.0 pg/mL (<58.9)
[2024-10-03 11:38] VITALS: TEMP 98
[2024-10-03 11:39] VITALS: BP 157/102; O2SAT 96
== END 2024-10-03 11:01 | disposition short-term general hospital (02) ==
LOC: ER 09:22
DX: I82.442 Acute embolism and thrombosis of left tibial vein (principal); D72.829 Elevated white blood cell count, unspecified; I10 Essential (primary) hypertension; R73.9 Hyperglycemia, unspecified; Z86.711 Personal history of pulmonary embolism; Z79.01 Long term (current) use of anticoagulants; Z89.511 Acquired absence of right leg below knee
CPT/HCPCS: 96365; 85025; 80048; 36415; 85610; 84484; 83880; 93926; 93971; 96375; 99285; J1644; J1171; J7030